=== PATIENT | female | born 1985 | race Two or more races ===

== ENCOUNTER 2023-11-14 22:47 | Emergency (ER) | payer BC, OTHER ==
[~2023-11-14] VITALS: Ht 175.3 cm; Wt 85.3 kg
[2023-11-14 22:55] VITALS: PULSE 91; RESP 16; TEMP 98.1; O2SAT 100
[2023-11-14] MEDS ORDERED: SODIUM CHLORIDE 0.9% 1000ML 1,000 ML IV STA (22:55)
[2023-11-14] MEDS ORDERED: METHYLPREDNISOLONE SOD SUCC 125 MG/2ML VIAL IV STA (22:56)
[2023-11-14] MEDS ORDERED: KETOROLAC TROME10 MG PO (23:06)
[2023-11-14] MEDS ORDERED: PREDNISONE20 MG PO (23:06)
[2023-11-14] MEDS ORDERED: PLAQUENIL200 MG PO (23:06)
== END 2023-11-14 23:11 | disposition home or self-care (01) ==
LOC: ER 22:54
DX: M32.9 Systemic lupus erythematosus, unspecified (principal); Z88.2 Allergy status to sulfonamides
CPT/HCPCS: 99283